=== PATIENT | female | born 1955 | race Asian ===

== ENCOUNTER 2023-07-17 16:31 | Emergency (ER) | payer OTHER ==
[~2023-07-17] VITALS: Ht 154.9 cm; Wt 51.7 kg
[2023-07-17 16:38] VITALS: BP_SYST 165; PULSE 78; RESP 18; TEMP 97.8; O2SAT 98
[2023-07-17] MEDS ORDERED: ACETAMINOPHEN 500 MG TABLET PO ONE (17:15)
[2023-07-17] MEDS ORDERED: KETOROLAC TROMETHAMINE 30 MG VIAL IM ONE (18:00)
[2023-07-17 18:19] VITALS: BP_SYST 165; PULSE 78; RESP 18; TEMP 97.8; O2SAT 98
[2023-07-17] MEDS ORDERED: IBUP-1971 PO (18:20)
[2023-07-17] MEDS ORDERED: ONDA-8 TL (18:20)
== END 2023-07-17 18:24 | disposition home or self-care (01) ==
LOC: SED 16:31
DX: S00.83XA Contusion of other part of head, initial encounter (principal); F07.81 Postconcussional syndrome; Z88.1 Allergy status to other antibiotic agents; Z79.899 Other long term (current) drug therapy; W01.0XXA Fall on same level from slipping, tripping and stumbling without subsequent striking against object, initial encounter; Y93.89 Activity, other specified; Y92.89 Other specified places as the place of occurrence of the external cause; Y99.8 Other external cause status
CPT/HCPCS: 99285; 70450; 76376; 96372; J1885